=== PATIENT | female | born 1990 | race African-American/Black ===

== ENCOUNTER 2017-08-11 00:13 | Emergency (ER) | payer SELFPAY ==
[~2017-08-11] VITALS: Ht 175.3 cm; Wt 66.0 kg
[2017-08-11] MEDS ORDERED: ACETAMINOPHEN 325MG TABLET PO ONE (00:30)
[2017-08-11] MEDS ORDERED: ONDANSETRON 4MG ODT PO ONE (01:15)
[2017-08-11 01:55] LABS: *AMPHETAMINES SCREEN URINE NEGATIVE (NEGATIVE); *BARBITURATES SCREEN URINE NEGATIVE (NEGATIVE); *BENZODIAZEPINES SCREEN URINE NEGATIVE (NEGATIVE); CANNABINOID URINE SCREEN NEGATIVE (NEGATIVE); METHADONE URINE SCREEN NEGATIVE (NEGATIVE); PHENCYCLIDINE URINE SCREEN NEGATIVE (NEGATIVE)
[2017-08-11 02:07] LABS: *COCAINE SCREEN URINE PRESUMTIVE POSITIVE (NEGATIVE); OPIATES URINE SCREEN PRESUMTIVE POSITIVE (NEGATIVE)
[2017-08-11 03:24] VITALS: BP 127/88
== END 2017-08-11 03:26 | disposition home or self-care (01) ==
LOC: ER 00:21
DX: F14.10 Cocaine abuse, uncomplicated (principal); R51 Headache; K02.9 Dental caries, unspecified
CPT/HCPCS: 70450; 80305; 99285; Q0162; Z7610

== ENCOUNTER 2017-09-18 12:28 | Emergency (ER) | payer MEDICAID ==
[~2017-09-18] VITALS: Ht 167.6 cm; Wt 55.0 kg
[2017-09-18 14:17] LABS: HEMATOCRIT. 37.2 % (36.0-48.0); HEMOGLOBIN. 10.8 g/dL (12.0-16.0); MEAN CORPUSCULAR VOLUME 72.1 fL (81.0-99.0); MEAN PLATELET VOLUME 8.3 fl (7.4-10.4); PLATELET 359 x1000/uL (130-400); RED BLOOD CELL COUNT 5.16 mill/uL (4.2-5.4); RED CELL DISTRIBUTION WIDTH 17.6 % (11.6-14.6)
[2017-09-18 14:32] LABS: CARBON DIOXIDE 26 mEq/L (21-32); CHLORIDE 107 mEq/L (98-107); ETHANOL BLOOD < 10 mg/dL
[2017-09-18 14:37] LABS: HCG SCREEN NEGATIVE
[2017-09-18 14:42] LABS: PLATELET ESTIMATE NORMAL
[2017-09-18] MEDS ORDERED: SODIUM CHLORIDE 0.9% 1,000 ML IV ONE (15:14)
[2017-09-18 16:17] VITALS: BP 127/69
== END 2017-09-18 16:28 | disposition home or self-care (01) ==
LOC: ER 12:28
DX: T40.601A Poisoning by unspecified narcotics, accidental (unintentional), initial encounter (principal); G93.40 Encephalopathy, unspecified
CPT/HCPCS: 36415; 80053; 84703; 85025; 96360; 99284; G0482; J7030